=== PATIENT | female | born 1975 | race Caucasian/White ===

== ENCOUNTER 2023-03-02 09:19 | Outpatient (CLI) | payer BC | END 2023-03-02 09:20 | disposition home or self-care (01) | LOC: CSHRAD 09:19 | PROVIDERS: ATTEND Internal Medicine Rheumatology | DX: R76.12 Nonspecific reaction to cell mediated immunity measurement of gamma interferon antigen response without active tuberculosis (principal) | CPT/HCPCS: 71046 ==